=== PATIENT | male | born 1990 | race Caucasian/White ===

== ENCOUNTER 2023-06-08 07:30 | Emergency (ER) | payer MEDICAID | END 2023-06-08 08:09 | disposition home or self-care (01) | LOC: DL.ED 07:30 | DX: S00.411A Abrasion of right ear, initial encounter (principal); W22.09XA Striking against other stationary object, initial encounter | CPT/HCPCS: 99282 ==

== ENCOUNTER 2023-10-07 11:48 | Emergency (ER) | payer MEDICAID | END 2023-10-07 12:17 | disposition home or self-care (01) | LOC: DL.ED 11:48 | DX: J01.00 Acute maxillary sinusitis, unspecified (principal) | CPT/HCPCS: 99282; 99283 ==

== ENCOUNTER 2024-03-24 18:54 | Emergency (ER) | payer SELFPAY ==
[2024-03-24 19:38] LABS: APPEARANCE,URINE CLEAR (CLEAR); BILIRUBIN,URINE NEGATIVE (NEGATIVE); COLOR,URINE YELLOW (YELLOW); GLUCOSE,URINE NEGATIVE (NEGATIVE); KETONES,URINE NEGATIVE (NEGATIVE); LEUKOCYTE ESTERASE,URINE TRACE (NEGATIVE); NITRITE,URINE NEGATIVE (NEGATIVE); OCCULT BLOOD,URINE SMALL (NEGATIVE); PH,URINE 6.5 (5.0-9.0); PROTEIN,URINE NEGATIVE (NEGATIVE); UROBILINOGEN,URINE 0.2 mg/dL (0.2-1.0)
[2024-03-24 20:06] LABS: EPITHELIAL CELLS,URINE FEW /HPF (NOT SEEN); MUCUS,URINE FEW /LPF (NOT SEEN); RBC,URINE 0-5 /HPF (0-5)
[2024-03-24] MEDS: Azithromycin 250 MG Tab PO ONE (20:27)
[2024-03-24] MEDS: Lidocaine 1% 5 ML VIAL ONE (20:28)
[2024-03-24] MEDS: cefTRIAXone 500 MG Vial IM ONE (20:28)
[2024-03-28 12:46] LABS: C.TRACHOMATIS BY TMA Negative (Negative); N.GONORRHOEAE BY TMA Negative (Negative); SOURCE URINE
== END 2024-03-24 21:13 | disposition home or self-care (01) ==
LOC: DL.ED 18:54
DX: N34.2 Other urethritis (principal); F17.210 Nicotine dependence, cigarettes, uncomplicated; Z86.19 Personal history of other infectious and parasitic diseases
CPT/HCPCS: 81001; 87086; 87491; 87591; 96372; 99283; 99284; A9270; J0696; J3490

== ENCOUNTER 2024-05-30 15:28 | Emergency (ER) | payer SELFPAY ==
[2024-05-30 16:53] LABS: BASOPHILS PERCENT AUTO 0.5 % (0.0-1.0); EOSINOPHILS PERCENT AUTO 1.1 % (1.0-3.0); HEMATOCRIT 44.5 % (40.0-54.0); HEMOGLOBIN 15.7 g/dL (14.0-18.0); LYMPHOCYTES PERCENT AUTO 20.9 % (20.5-50.1); MEAN CORPUSCULAR HGB CONC 35.3 g/dL (33.0-35.0); MEAN CORPUSCULAR VOLUME 90.6 fL (80-100); MONOCYTES PERCENT AUTO 9.9 % (2-8); NEUTROPHILS PERCENT AUTO 67.6 % (42.2-75.2); PLATELET COUNT,PLT 210 10^3/uL (150-450); RED BLOOD CELL COUNT 4.91 10^6/uL (4.6-6.2); WHITE BLOOD CELL COUNT,WBC 6.7 10^3/uL (5.0-10.0)
[2024-05-30 17:06] LABS: AMPHETAMINES,URINE NEGATIVE (NEGATIVE); BARBITURATES,URINE NEGATIVE (NEGATIVE); BENZODIAZEPINE,URINE NEGATIVE (NEGATIVE); MDMA (ECSTASY), URINE NEGATIVE (NEGATIVE); METHADONE,URINE NEGATIVE (NEGATIVE); METHAMPHETAMINES,URINE NEGATIVE (NEGATIVE); OPIATES,URINE NEGATIVE (NEGATIVE); OXYCODONE,URINE NEGATIVE (NEGATIVE); PHENCYCLIDINE,URINE NEGATIVE (NEGATIVE); TCA,URINE NEGATIVE (NEGATIVE)
[2024-05-30 17:20] LABS: A/G RATIO 1.2; ALANINE AMINOTRANSFERASE,ALT 95 U/L (16-63); ALBUMIN 3.6 g/dL (3.4-5.0); ALKALINE PHOSPHATASE 88 U/L (46-116); ANION GAP 8.7 mEq/L (7-13); ASPARTATE AMNIOTRANSFERASE,AST 31 U/L (15-37); BILIRUBIN TOTAL 0.4 mg/dL (0.2-1.0); BLOOD UREA NITROGEN,BUN 16 mg/dL (7-18); BUN/CREATININE RATIO 13.8 (No establ ref range); CALCIUM 8.7 mg/dL (8.5-10.1); CARBON DIOXIDE,CO2 30 mmol/L (21-32); CHLORIDE,CL 102 mmol/L (98-107); CREATININE 1.16 mg/dL (0.70-1.30); EST CRCL DRUG DOSING (CG) 97.37 mL/min; GLUCOSE RANDOM 106 mg/dL (70-99); POTASSIUM,K 3.7 mmol/L (3.5-5.1); PROTEIN TOTAL,TP 6.5 g/dL (6.4-8.2); SODIUM,NA 137 mmol/L (136-145)
[2024-05-30 17:28] LABS: ESTIMATED GFR 86 mL/min (>=60); ETHANOL BLOOD MEDICAL < 3 mg/dL (0)
== END 2024-05-30 18:07 | disposition home or self-care (01) ==
LOC: DL.ED 15:28
DX: F10.10 Alcohol abuse, uncomplicated (principal); Z59.00 Homelessness unspecified
CPT/HCPCS: 36415; 80053; 80305-QW; 80307; 85025; 99284

== ENCOUNTER 2024-12-12 08:54 | Emergency (ER) | payer SELFPAY | END 2024-12-12 09:24 | disposition left against medical advice (07) | LOC: DL.ED 08:54 | DX: Z53.21 Procedure and treatment not carried out due to patient leaving prior to being seen by health care provider (principal) ==

== ENCOUNTER 2025-01-01 08:12 | Emergency (ER) | payer MEDICAID | END 2025-01-01 09:39 | disposition home or self-care (01) | LOC: DL.ED 08:12 → EEVIPCON 08:12 → DL.ED 09:39 | DX: J40 Bronchitis, not specified as acute or chronic (principal) | CPT/HCPCS: 71045; 87428-QW; 99284 ==